=== PATIENT | male | born 1995 | race Caucasian/White ===

== ENCOUNTER 2021-02-03 09:26 | Day surgery (SDC) | payer OTHER ==
[~2021-02-03] VITALS: Ht 170.2 cm; Wt 61.0 kg
[~2021-02-03 09:26] MED LIST: ATIVAN 0.50.5 MG/TAB PO; LEXAPRO 10MG10 MG PO; ZOFRAN 4MG T4 MG/TAB PO
[2021-02-03] MEDS ORDERED: INHALER (10:27)
[2021-02-03 10:39] VITALS: BP 110/75; PULSE 77; TEMP 98
[2021-02-03 11:55] VITALS: BP 108/65; PULSE 75; TEMP 97.7
[2021-02-03 12:10] VITALS: BP 103/71; PULSE 81
[2021-02-03 12:25] VITALS: BP 117/71; PULSE 78
--- NOTE | 2021-02-03 12:50 | NUR ---
1155- Pt returns from endo procedure via cart to [facility]. Pt ambulates from cart to recliner with RN assist. Monitors on and alarms set. Call light within reach. Report received from RYAN Dupree. Pt alert and oriented. Pt requests soda and pudding. Pt denies any pain or nausea. 1210- Pt taking food and drink well. No complications noted. 1225- IV discuntinued with no complicatoins. Pt up to bathroom, able to void. Instructed to dress and open door when ready for discharge. 1245- Discharge instructions given to pt. All questions answered to pt and girlfriend's satisfaction. Handed to pt education material and discharge information. 1250- Pt transferred out of the hospital via wheelchair, to private vehicle driven by girlfriend.
== END 2021-02-03 12:50 | disposition home or self-care (01) ==
LOC: SDCO 09:26
DX: K29.30 Chronic superficial gastritis without bleeding (principal); K21.00 Gastro-esophageal reflux disease with esophagitis, without bleeding; R04.2 Hemoptysis; R63.4 Abnormal weight loss; R19.4 Change in bowel habit; R19.7 Diarrhea, unspecified; Q40.2 Other specified congenital malformations of stomach; K64.0 First degree hemorrhoids; F17.210 Nicotine dependence, cigarettes, uncomplicated; F32.A Depression, unspecified; F41.9 Anxiety disorder, unspecified; Z79.899 Other long term (current) drug therapy
CPT/HCPCS: J2704; J7120